=== PATIENT | female | born 1950 | race Caucasian/White ===

== ENCOUNTER 2018-04-27 16:59 | Emergency (ER) | payer OTHER ==
[~2018-04-27] VITALS: Ht 172.7 cm; Wt 82.7 kg
[2018-04-27 18:27] VITALS: BP 147/88
== END 2018-04-27 18:27 | disposition home or self-care (01) ==
LOC: ED 16:59
DX: F07.81 Postconcussional syndrome (principal); I10 Essential (primary) hypertension